=== PATIENT | female | born 1955 | race Two or more races ===

== ENCOUNTER 2018-07-27 06:06 | Day surgery (SDC) | payer OTHER ==
[2018-07-26 11:34] VITALS: BMI 28.1
--- NOTE | 2018-07-26 15:25 | HP ---
- Patient Scheduled date of Surgery: 07/27/18 Scheduled Surgical Procedure: Phacoemulsification and cataract extraction with PCIOL Affected Eye: Right Chief Complaint (Indication for surgery): Decreased vision affecting ADLs - Ocular History Other Eye History: Other (tyrese , pvd os) Eye Medications: vigamox, AT Previous Eye Surgery: none - Medical History Illnesses: Hypercholesterolemia, Diabetes, Thyroid Disease Current Medications: Ambulatory Orders Atorvastatin Calcium [Lipitor] 20 mg PO HS 07/26/18 Calcium Carbonate [Calcium] 600 mg PO DAILY 07/26/18 Ergocalciferol (Vitamin D2) [Vitamin D2] 50,000 unit PO WEEKLY 07/26/18 Glipizide 5 mg PO DAILY 07/26/18 Levothyroxine [Synthroid -] 50 mcg PO DAILY 07/26/18 Multivitamin [Multiple Vitamins] 1 each PO DAILY 07/26/18 Sitagliptin Phos/Metformin HCl [Janumet 50-500 mg Tablet] 1 each PO BID Vitamin B Complex 1 each PO DAILY 07/26/18 Allergies/Adverse Reactions: Allergies Allergy/AdvReac Type Severity Reaction Status Date / Time No Known Allergies Allergy Verified 07/26/18 11:33 Ocular Examination - Best Corrected Visual Acuity Distance: Right eye: 20/40 Distance: Left eye: 20/40 - External/Slit Lamp Examination Abnormalities: decreased TBUT , pingueculum - Intraocular Pressure Intraocular Pressure - Right eye: 14 Intraocular Pressure-Left eye: 14 - Lens Lens: 2+ NS 1+ cortical, 1+ psc - Vitreous/Retina Vitreous/Retina: C:D 0.1, m/v/p wnl - Special Examination M - Right eye: -0.75-1.25 x170 M - Left eye: -0.50-0.75 x005 K - Right eye: 43/44.25 x85 K - Left eye: 43.50/45 x080 AL - Right eye: 23.64 AL - Left eye: 23.64 IOL bag: +20.5 AUOOTO IOL sulcus: +19.5 [id number] IOL AC: +17.0 [id number] - Impression Impression: Cataract Right Eye - Plan Plan: Phacoemulsification and cataract extraction - IOL Right eye Post-hospital care will be provided in office on: 07/28/18
[~2018-07-27 06:06] MED LIST: TOBRAMYCIN/DEXAMETHASONE OPHTH. OINTMENT 1 TUBE TP ONE
[2018-07-27] MEDS ORDERED: CIPROFLOXACIN HCL 0.3% OPHTH 2.5ML BOTTLE ONE (06:28)
[2018-07-27] MEDS ORDERED: PHENYLEPHRINE 2.5% OPHTH SOLN 15 ML BOTTLE ONE (06:28)
[2018-07-27] MEDS ORDERED: TROPICAMIDE 1% OPHTH SOLN 15 ML BOTTLE ONE (06:29)
[2018-07-27] MEDS ORDERED: DICLOFENAC SODIUM 0.1% OPHTHALMIC 2.5ML BOTTLE ONE (06:29)
[2018-07-27] MEDS: CIPROFLOXACIN HCL 0.3% OPHTH 2.5ML BOTTLE OP SCH ×3 (06:45→07:10)
[2018-07-27] MEDS: TROPICAMIDE 1% OPHTH SOLN 15 ML BOTTLE OP SCH ×3 (06:45→07:11)
[2018-07-27] MEDS ORDERED: KETOROLAC TROMETHAMINE 0.5% EYE DROP 1 DROP DROPS ONE (06:55)
[2018-07-27] MEDS: PHENYLEPHRINE 2.5% OPHTH SOLN 15 ML BOTTLE OP SCH ×2 (07:00→07:11)
[2018-07-27] MEDS ORDERED: ACETAMINOPHEN 325 MG TABLET (FP) PO PRN (07:00)
[2018-07-27] MEDS: KETOROLAC TROMETHAMINE 0.5% EYE DROP 1 DROP DROPS OP SCH ×2 (07:00→07:11)
[2018-07-27] MEDS ORDERED: CHONDROITIN SU A/HYALUR SOD 1 KIT ONE (07:06)
[2018-07-27] MEDS ORDERED: LIDOCAINE HCL/PF 1% SDV 5ML VIAL ONE (07:11)
[2018-07-27] MEDS ORDERED: EPINEPHrine/PF 1 MG/1 ML (1:1,000) AMPULE ONE (07:11)
[2018-07-27] MEDS ORDERED: TOBRAMYCIN/DEXAMETHASONE OPHTH. OINTMENT 1 TUBE ONE (07:11)
[2018-07-27] MEDS ORDERED: TETRACAINE 0.5% OPHTH SOLN 2 ML BOTTLE ONE (07:12)
[2018-07-27] MEDS ORDERED: POVIDONE-IODINE 5% OPHTHALMIC PREP 30 ML SOLUTION ONE (07:12)
[2018-07-27] MEDS ORDERED: ACETYLCHOLINE 1:100 INTRA-OCUL 20 MG/2 ML KIT ONE (07:12)
--- NOTE | 2018-07-27 07:23 | HP ---
History & Physical Update - History History: No Change - Physical Physical: No Change - Assessment Assessment: No Change - Plan Plan: No Change (H an P by Dr. Phoenix dated 07/13/18 reivewed, no changes)
[2018-07-27] MEDS ORDERED: BUPIVACAINE HCL/PF 0.75% 10 ML VIAL ONE (07:32)
[2018-07-27] MEDS ORDERED: LIDOCAINE HCL/PF 2% SDV 5ML VIAL ONE (07:33)
[2018-07-27] MEDS ORDERED: PROPOFOL 20 ML ONE (07:51)
[2018-07-27] MEDS ORDERED: TETRACAINE 0.5% OPHTH SOLN 2 ML BOTTLE OD ONE (07:53)
[2018-07-27] MEDS ORDERED: BUPIVACAINE HCL/PF 0.75% 10 ML VIAL NR ONE (07:55)
[2018-07-27] MEDS ORDERED: LIDOCAINE HCL/PF 2% SDV 5ML VIAL INF ONE (07:55)
[2018-07-27] MEDS ORDERED: POVIDONE-IODINE 5% OPHTHALMIC PREP 30 ML SOLUTION OD ONE (08:00)
[2018-07-27] MEDS ORDERED: LIDOCAINE HCL 1% PRESERVATIVE FREE - 30ML VIAL IO ONE (08:06)
[2018-07-27] MEDS ORDERED: BSS (NA/CA/MG/K) BALANCED SALT SOLUTION OPHTH SOLN 15 ML BOTTLE OD ONE (08:06)
[2018-07-27] MEDS ORDERED: CHONDROITIN SU A/HYALUR SOD 1 KIT IO ONE (08:06)
[2018-07-27] MEDS ORDERED: EPINEPHrine/PF 1 MG/1 ML (1:1,000) AMPULE SQ ONE (08:11)
[2018-07-27] MEDS ORDERED: TOBRAMYCIN/DEXAMETHASONE OPHTH. OINTMENT 1 TUBE TP ONE (08:30)
[2018-07-27 08:51] VITALS: TEMP 97.9
--- NOTE | 2018-07-27 09:26 | OP ---
Ophthalmology Operative Note Pre-Operative Diagnosis: Cataract Affected Eye: Right Operation: Phacoemulsification and cataract extraction with PCIOL Findings: NS cataract right eye Post-Operative Diagnosis: Same as Pre-op Loan Counselor: None Anesthesiologist: Rell Guerin Anesthesia: Local, Peribulbar Specimens Removed: none Estimated blood loss: < 1 cc Drains & Tubes with Location: none Operative Report Dictated: Yes
[2018-07-27] MEDS ORDERED: ONDANSETRON 4 MG/2 ML VIAL IVPUSH PRN (10:24)
[2018-07-27] MEDS ORDERED: LACTATED RINGERS SOLUTION 1,000 ML IV SCH (10:30)
[2018-07-27 12:54] VITALS: BP 126/71; PULSE 70
--- NOTE | 2018-07-27 16:02 | OP ---
DATE OF OPERATION: DATE OF DICTATION: 07/27/2018 PREOPERATIVE DIAGNOSIS: Nuclear sclerotic cataract right eye. POSTOPERATIVE DIAGNOSIS: Nuclear sclerotic cataract right eye. PROCEDURE: Phacoemulsification and cataract extraction with insertion of posterior chamber intraocular lens right eye. SURGEON: Liliane Stevenson M.D. DYNAMITE SHOOTER: None ANESTHESIA: Peribulbar block ANESTHESIOLOGIST: Rell Guerin CRNA OPERATIVE PROCEDURE: Following satisfactory venous sedation, the patient received local anesthesia using a 50:50 mixture of lidocaine 2% and Marcaine 0.75%. A lid block was delivered to the right eye using 5 mL of the mixture and a peribulbar injection using 3 mL of the mixture. The patient was then prepped and draped in the usual sterile fashion so as to only expose the right eye. The patient received Tetracaine eye drops and was gently sedated and prepped and draped in the usual sterile fashion so as to expose only the right eye. Ophthalmic Betadine was instilled into the inferior fornix and lashes were taped out of the surgical field. An eyelid speculum was placed into the right eye. Paracentesis was made in right temporal clear cornea at the limbus. Then 0.5 mL of nonpreserved lidocaine 1% was injected into the anterior chamber and then 1 mL of dilute epinephrine 1:10,000 was injected into the anterior chamber to improve pupillary dilation. Viscoelastic material was instilled into the anterior chamber via the paracentesis. A 2.4-mm keratome blade was then used to create the main incision in temporal clear cornea at the limbus. A continuous curvilinear capsulorrhexis was performed using a cystotome and Utrata forceps. Hydrodissection of the lens cortex was performed using BSS on a cannula until the nucleus was noted to be freely rotating. The phacoemulsification tip was then inserted via the main wound and used to scope 2 perpendicular grooves into the lens nucleus. The nucleus was cracked into 4 quadrants. Each quadrant was lifted out of the capsule into the iris plane and individually phacoemulsified. The remaining cortical material was then aspirated using the irrigation/aspiration port. The capsular bag was inflated using ProVisc and a preloaded AcrySof lens model [id number] power 20.5 diopters was injected into the capsular bag. It was centered using a Sinskey hook. The residual viscoelastic material was removed from the anterior chamber using irrigation and aspiration. The wound edges were hydrated using BSS. After the wound was tested for leakage, it was found to be slightly leaky. Therefore, one 10-0 nylon suture was placed across the wound in an X configuration and buried. Tobradex ointment was placed in the eye, and the speculum was removed from the eye, and the eyelid was closed. A sterile dressing and shield were placed over the eye. The patient was transferred to the recovery room in stable condition, told to follow up in 1 day. LILIANE PAREDES M.D. [id number]
== END 2018-07-27 09:30 | disposition home or self-care (01) ==
LOC: JASU-SURG 06:06
PROVIDERS: ATTEND Ophthalmology
PROC: 08RJ3JZ Replacement of Right Lens with Synthetic Substitute, Percutaneous Approach (ICD-10-PCS; principal; 2018-07-27 07:30)
DX: H25.11 Age-related nuclear cataract, right eye (principal); I10 Essential (primary) hypertension; E11.9 Type 2 diabetes mellitus without complications
CPT/HCPCS: 82962

== ENCOUNTER 2018-10-19 05:55 | Day surgery (SDC) | payer OTHER | END 2018-10-19 09:07 | disposition home or self-care (01) | LOC: JASU-SURG 05:55 ==

== ENCOUNTER 2019-04-04 14:27 | Observation (INO) | payer OTHER ==
--- NOTE | 2019-04-04 14:38 | PDOC ---
Rapid Medical Evaluation Medical Evaluation: Allergies Allergy/AdvReac Type Severity Reaction Status Date / Time No Known Allergies Allergy Verified 10/18/18 12:26 04/04/19 14:32 have performed a brief in-person evaluation of this patient. The patient presents with a chief complaint of: CP w/ SOB x 1 week. No known h/ o CAD. ? neg stress test 3 years ago at [facility] per son. No obvious RF for DVT/ PE. H/o DM, HLD, Hypothyroid. Sent to ER by Dr Phoenix (pmd) Pertinent physical exam findings:Stable and well alberto I have ordered the following:ek/cxr/labs The patient will proceed to the ED for further evaluation. 04/04/19 14:38 Discharge Disposition - Diagnosis Chest pain Qualifiers: Chest pain type: unspecified Qualified Code(s): R07.9 - Chest pain, unspecified - Referrals - Patient Instructions - Post Discharge Activity
--- NOTE | 2019-04-04 14:39 | PDOC ---
History of Present Illness - General Chief Complaint: Chest Pain Stated Complaint: SENT BY PCP/CHEST PAIN Time Seen by Provider: 04/04/19 14:35 History Source: Patient - History of Present Illness Initial Comments: 04/04/19 15:00 Ms. Hewitt is a 64 y/o woman w/hx DM, HLD, hypothyroidism p/w one week of chest pain and sob, sent by PCP for evaluation. She reports that the pain began a week ago accompanied by sob, no prior similar episodes. 8/10 substernal pain described as tightness, worse with exertion, non-radiating, worse with palpation. No orthopnea, lower extremity swelling, or history of DVTs. PCP: Dr. Phoenix Past History - Past Medical History Allergies/Adverse Reactions: Allergies Allergy/AdvReac Type Severity Reaction Status Date / Time No Known Allergies Allergy Verified 04/04/19 14:38 Home Medications: Ambulatory Orders Atorvastatin Calcium [Lipitor] 20 mg PO HS 07/26/18 Calcium Carbonate [Calcium] 600 mg PO DAILY 07/26/18 Ergocalciferol (Vitamin D2) [Vitamin D2] 50,000 unit PO WEEKLY 07/26/18 Glipizide 5 mg PO DAILY 07/26/18 Levothyroxine [Synthroid -] 50 mcg PO DAILY 07/26/18 Multivitamin [Multiple Vitamins] 1 each PO DAILY 07/26/18 Sitagliptin Phos/Metformin HCl [Janumet 50-500 mg Tablet] 1 each PO BID Vitamin B Complex 1 each PO DAILY 07/26/18 Anemia: No Asthma: No Cancer: No Cardiac Disorders: No CVA: No COPD: No CHF: No Dementia: No Diabetes: Yes GI Disorders: No Disorders: No HTN: Yes Hypercholesterolemia: Yes Liver Disease: No Seizures: No Thyroid Disease: Yes (HYPO) Other medical history: SPINAL STENOSIS - Surgical History Cholecystectomy: Yes - Psycho Social/Smoking Cessation Hx Smoking History: Never smoked Hx Alcohol Use: No Drug/Substance Use Hx: No Substance Use Type: None Hx Substance Use Treatment: No Review of Systems - Review of Systems Able to Perform ROS?: Yes Comments:: 04/04/19 18:04 ROS: GENERAL/CONSTITUTIONAL: No fever or chills. No weakness. HEAD, EYES, EARS, NOSE AND THROAT: No change in vision. No ear pain or discharge. No sore throat. CARDIOVASCULAR: Chest pain, shortness of breath RESPIRATORY: No cough, wheezing, or hemoptysis. GASTROINTESTINAL: No nausea, vomiting, diarrhea or constipation. GENITOURINARY: No dysuria, frequency, or change in urination. MUSCULOSKELETAL: No joint or muscle swelling or pain. No neck or back pain. SKIN: No rash NEUROLOGIC: No headache, vertigo, loss of consciousness, or change in strength/ sensation. ENDOCRINE: No increased thirst. No abnormal weight change HEMATOLOGIC/LYMPHATIC: No anemia, easy bleeding, or history of blood clots. ALLERGIC/IMMUNOLOGIC: No hives or skin allergy. *Physical Exam - Vital Signs Last Vital Signs Temp Pulse Resp BP Pulse Ox 98.4 F 86 18 134/75 98 04/04/19 14:34 04/04/19 14:34 04/04/19 14:34 04/04/19 14:34 04/04/19 14:34 - Physical Exam 04/04/19 18:08 PE: GENERAL: Awake, alert, and fully oriented, in no acute distress HEAD: No signs of trauma, normocephalic, atraumatic EYES: PERRLA, EOMI, sclera anicteric, conjunctiva clear ENT: Auricles normal inspection, hearing grossly normal, nares patent, oropharynx clear without exudates. Moist mucosa NECK: Normal ROM, supple, no lymphadenopathy, JVD, or masses LUNGS: No distress, speaks full sentences, clear to auscultation bilaterally HEART: Regular rate and rhythm, normal S1 and S2, no murmurs, rubs or gallops, peripheral pulses normal and equal bilaterally. ABDOMEN: Soft, nontender, normoactive bowel sounds. No guarding, no rebound. No masses EXTREMITIES : Normal inspection, Normal range of motion, no edema. No clubbing or cyanosis NEUROLOGICAL: Cranial nerves II through XII grossly intact. Normal speech, normal gait, no focal sensorimotor deficits SKIN: Warm, Dry, normal turgor, no rashes or lesions noted Heart Score/ECG Review - History History: Moderately suspicious - Electrocardiogram EKG: Normal - Age Age: >/= 65 - Risk Factors Risk Factors Heart Score: Yes Hx Hypercholesterolemia, Yes Hx Diabetes, Yes Hx Obesity Based on the list above the patient has:: >/=3 risk factors or Hx atherosclerotic disease - Troponin Troponin: </= normal limit - Score Heart Score - Total: 5 ED Treatment Course - LABORATORY CBC & Chemistry Diagram: 04/04/19 15:00 04/04/19 15:00 Medical Decision Making - Medical Decision Making 04/04/19 15:49 64F w/hx DM, hypothyroidism p/w 1 week of squeezing chest pain, sob, worse with exertion. Ddx includes ACS, unstable angina, given age/comorbidities. Anemia, electrolyte derangements also possible. Esophageal rupture and PE possible but unlikely (Wells - 0). Plan: CBC CMP Cardiac profile EKG CXR ASA 324 mg Dispo: Admit --- CBC - wnl CMP - wnl Cardiac profile - negative Case discussed with admitting team. Patient admitted to cardiac obs. Discharge - Discharge Information Problems reviewed: Yes Clinical Impression/Diagnosis: Chest pain Qualifiers: Chest pain type: unspecified Qualified Code(s): R07.9 - Chest pain, unspecified Condition: Stable - Admission Yes - Follow up/Referral - Patient Discharge Instructions - Post Discharge Activity
[2019-04-04] MEDS ORDERED: ASPIRIN 325 MG TABLET PO ONE (15:24)
[2019-04-04] MEDS ORDERED: ASPIRIN 325 MG ENTERIC COATED TABLET (FP) ONE (15:37)
[2019-04-04 15:41] LABS: BASO % 1.5 % (0-2.0); EOS % 0.7 % (0-4.5); HEMATOCRIT 45.7 % (32.4-45.2); HEMOGLOBIN 16.2 GM/dL (10.7-15.3); LYMPH % 22.3 % (8-40); MCH 29.4 pg (25.7-33.7); MCHC 35.4 g/dl (32.0-36.0); MEAN PLT VOLUME 8.1 fl (7.5-11.1); MONO % 8.1 % (3.8-10.2); NEUT % 67.4 % (42.8-82.8); PLATELET COUNT 285 K/MM3 (134-434); RDW 12.9 % (11.6-15.6); WHITE BLOOD COUNT 8.8 K/mm3 (4.0-10.0)
[2019-04-04 15:55] LABS: ALBUMIN 4.9 g/dl (3.4-5.0); BILIRUBIN,TOTAL 0.7 mg/dL (0.2-1); BLOOD UREA NITROGEN 30.2 mg/dL (7-18); CALCIUM 9.8 mg/dL (8.5-10.1); CREATININE 0.9 mg/dL (0.55-1.3); POTASSIUM 3.8 mmol/L (3.5-5.1); TOT PROT 8.1 g/dl (6.4-8.2)
--- NOTE | 2019-04-04 16:33 | EKG ---
Test Reason : Blood Pressure : / mmHG Vent. Rate : 080 BPM Atrial Rate : 080 BPM P-R Int : 154 ms QRS Dur : 100 ms QT Int : 394 ms P-R-T Axes : 050 002 048 degrees QTc Int : 454 ms NORMAL SINUS RHYTHM NORMAL ECG Confirmed by MD HAYNES GREGORY ([id number]) on 04/04/2019 4:32:39 PM Referred By: Confirmed By:HUSAM HAYNES MD
--- NOTE | 2019-04-04 17:13 | PDOC ---
Documentation entered by Reji Santoyo SCRIBE, acting as scribe for Jinny So MD. Jinny oS MD: This documentation has been prepared by the Yarelis gomez Xhesika, SCRIBE, under my direction and personally reviewed by me in its entirety. I confirm that the documentation accurately reflects all work, treatment, procedures, and medical decision making performed by me. Attending Attestation - Resident Resident Name: TommiePascual - ED Attending Attestation I have performed the following: I have examined & evaluated the patient, The case was reviewed & discussed with the resident, I agree w/resident's findings & plan, Exceptions are as noted - HPI HPI: 04/04/19 15:29 The patient is a 64 year old female with a significant PMH of DM, HLD, hypothyroidism who presents to the emergency department referred by Dr. Phoenix for 1 week of SOB and chest pain. Pt states she saw Dr. Phoenix today for the same symptoms and had an EKG done, which was normal. Pt describes her chest pain as substernal, pressure sensation, 8/10 in severity without any alleviating or aggravating factors. The patient denies headaches and dizziness. Denies fever, chills, cough, nausea , vomiting, diarrhea and constipation. Denies dysuria, frequency, urgency and hematuria. Allergies: NKDA - Physicial Exam PE: 04/04/19 17:11 Awake alert no acute distress lungs are clear bilaterally heart is regular 30 murmurs rubs or gallops abdomen is soft nontender skin is warm and dry extremities are warm well perfused there is no noted peripheral edema 2+ DP PT pulses symmetric bilaterally. Patient is awake alert and oriented x3 - Medical Decision Making 04/04/19 17:12 64-year-old female history of diabetes hypertension here today complaining of pressure-like chest pain suspicious for ACS differential includes other causes such as pneumonia infection CHF plan CBC CMP troponin EKG. Due to the patient' s high risk factors will require admission to telemetry initial troponin EKG unremarkable chest x-ray is negative for any infection given aspirin here in the ED Heart Score/ECG Review #1 General ECG Interpretation: Sinus Rhythm, Normal Rate, Normal Intervals, No acute ischemic changes
[2019-04-04] MEDS ORDERED: ATORVASTATIN CA 40 MG TABLET (FP) PO ONE (17:44)
[2019-04-04] MEDS ORDERED: NITROGLYCERIN 2% OINTMENT - 1GM PACKET TD ONE ×2 (17:44→18:52)
--- NOTE | 2019-04-04 17:46 | HP ---
Admitting History and Physical - Primary Care Physician PCP: Lexis Phoenix - Admission Chief Complaint: chest pain History of Present Illness: 04/04/19 15:29 The patient is a 64 year old female with a significant PMH of DM, HLD, hypothyroidism who presents to the emergency department referred by Dr. Phoenix for 1 week of SOB and chest pain. Pt states she saw Dr. Phoenix today for the same symptoms and had an EKG done, which was normal. Pt describes her chest pain as substernal, pressure sensation, 8/10 in severity without any alleviating or aggravating factors. has been going on for the past 2 weeks, and no associated indigetsion, no relation to breathing, The patient denies headaches and dizziness. Denies fever, chills, cough, nausea, vomiting, diarrhea and constipation. Denies dysuria, frequency, urgency and hematuria. History Source: Patient, Family Member Limitations to Obtaining History: No Limitations - Past Medical History Cardiovascular: Yes: Hyperlipdemia Endocrine: Yes: Diabetes Mellitus, Hypothyroidism - Smoking History Smoking history: Never smoked - Alcohol/Substance Use Hx Alcohol Use: No - Social History Usual Living Arrangement: Yes: With Child ADL: Independent History of Recent Travel: No Home Medications - Allergies Allergies/Adverse Reactions: Allergies Allergy/AdvReac Type Severity Reaction Status Date / Time No Known Allergies Allergy Verified 04/04/19 14:38 - Home Medications Home Medications: Ambulatory Orders Atorvastatin Calcium [Lipitor] 20 mg PO HS 07/26/18 Calcium Carbonate [Calcium] 600 mg PO DAILY 07/26/18 Glipizide 5 mg PO DAILY 07/26/18 Levothyroxine [Synthroid -] 50 mcg PO DAILY 07/26/18 Vitamin B Complex 1 each PO DAILY 07/26/18 Dapagliflozin Propanediol [Farxiga] 10 mg PO DAILY 04/04/19 Sitagliptin Phos/Metformin HCl [Janumet 50-1,000 mg Tablet] 1 each PO BID 04/04/19 Family Medical History Family History: Denies Review of Systems - Review of Systems Constitutional: reports: No Symptoms Eyes: reports: No Symptoms Neck: reports: No Symptoms Cardiovascular: reports: Chest Pain, Other Respiratory: reports: No Symptoms Gastrointestinal: reports: No Symptoms Genitourinary: reports: No Symptoms Breasts: reports: No Symptoms Reported Musculoskeletal: reports: No Symptoms Integumentary: reports: No Symptoms Endocrine: reports: No Symptoms Hematology/Lymphatic: reports: No Symptoms Psychiatric: reports: No Symptoms Physical Examination Vital Signs: Vital Signs Temperature 98.4 F 04/04/19 14:34 Pulse Rate 86 04/04/19 14:34 Respiratory Rate 18 04/04/19 14:34 Blood Pressure 134/75 04/04/19 14:34 O2 Sat by Pulse Oximetry (%) 98 04/04/19 14:34 Constitutional: Yes: Well Nourished Eyes: Yes: Conjunctiva Clear, EOM Intact HENT: Yes: Atraumatic, Normocephalic Neck: Yes: Supple, Trachea Midline Cardiovascular: Yes: Regular Rate and Rhythm, Other (tender at the costochondral junction,) Respiratory: Yes: Regular, CTA Bilaterally Gastrointestinal: Yes: Normal Bowel Sounds, Soft Extremities: Yes: WNL Edema: No Peripheral Pulses WNL: Yes Integumentary: Yes: WNL Neurological: Yes: WNL ...Motor Strength: WNL Psychiatric: Yes: WNL Labs: CBC, BMP 04/04/19 15:00 04/04/19 15:00 Imaging - Results EKG: Report Reviewed, Image Reviewed Assessment/Plan 04/04/19 15:29 The patient is a 64 year old female with a significant PMH of DM, HLD, hypothyroidism who presents to the emergency department referred by Dr. Phoenix for sob, Chest pain, r/o cad, likely musculoskeletal, recieved the asp and is still in pain, start nitropaste, and ekg no acute st t changes, and check serial of crdiac enzyymes, and will get cardiology, Dm riss, and home meds, hyperlipidemia, resume meds, dvt prophylaxis, Visit type - Emergency Visit Emergency Visit: No - New Patient This patient is new to me today: Yes Date on this admission: 04/19/19 - Critical Care Critical Care patient: No
[2019-04-04] MEDS ORDERED: ATORVASTATIN CA 40 MG TABLET (FP) ONE (18:52)
[2019-04-04] MEDS ORDERED: ENOXAPARIN NA (PORCINE) 40 MG/0.4 ML DISP.SYRIN SQ ONE (18:52)
[2019-04-04] MEDS: ENOXAPARIN NA (PORCINE) 40 MG/0.4 ML DISP.SYRIN SQ SCH (19:27)
[2019-04-04 20:16] VITALS: BMI 29.5
[2019-04-04] MEDS ORDERED: PATIENT'S OWN MEDICATION (NON-FORMULARY) (Sitagliptin Phos/Metformin Hcl [Janumet 50-1,000 PO SCH (22:00)
[2019-04-04] MEDS ORDERED: ATORVASTATIN CA 20 MG TABLET (FP) PO SCH (22:00)
[2019-04-04] MEDS ORDERED: INSULIN SLIDING SCALE (NOVOLOG) 1 VIAL SQ SCH (22:00)
[2019-04-04] MEDS: metFORMIN HCL 500 MG TABLET (FP) PO SCH (22:59)
[2019-04-04] MEDS: sitaGLIPtin PHOSPHATE 50 MG TABLET PO SCH (22:59)
[2019-04-04] MEDS: INSULIN SLIDING SCALE (NOVOLOG) 1 VIAL SQ SCH (23:00)
[2019-04-05] MEDS: metFORMIN HCL 500 MG TABLET (FP) PO SCH (06:06)
[2019-04-05] MEDS: sitaGLIPtin PHOSPHATE 50 MG TABLET PO SCH (06:06)
[2019-04-05] MEDS: INSULIN SLIDING SCALE (NOVOLOG) 1 VIAL SQ SCH ×3 (06:07→16:14)
[2019-04-05] MEDS ORDERED: LEVOTHYROXINE NA 50 MCG TABLET (FP) PO SCH (07:00)
[2019-04-05 07:19] LABS: HEMATOCRIT 41.9 % (32.4-45.2); HEMOGLOBIN 14.6 GM/dL (10.7-15.3); MCH 29.1 pg (25.7-33.7); MEAN CELL VOLUME 83.3 fl (80-96); MEAN PLT VOLUME 7.8 fl (7.5-11.1); PLATELET COUNT 246 K/MM3 (134-434); RBC 5.02 M/mm3 (3.60-5.2); RDW 12.8 % (11.6-15.6); WHITE BLOOD COUNT 5.9 K/mm3 (4.0-10.0)
--- NOTE | 2019-04-05 08:17 | PN ---
Progress Note (short form) - Note Progress Note: 64 yo lady with h/o htn, hyperlipidemia, NIDDM, hypothyroidism comes in for 1 week of exertional dyspnea, describes not getting enough air and having pleuritic chest pain cardiac enzymes neg x2 CBC, BMP 04/05/19 05:43 Vital Signs Period Temp Pulse Resp BP Sys/Galvez Pulse Ox Last 24 Hr 97.7 F-98.4 F 70-88 18-20 99-134/56-75 94-98 s1s2 lungs cta abd soft non tender no edema offers no complaints at present chest pain echo stress test as per cardiology cta r/o pe
[2019-04-05 08:45] LABS: ALBUMIN 4.2 g/dl (3.4-5.0); BILIRUBIN,TOTAL 0.9 mg/dL (0.2-1); BLOOD UREA NITROGEN 23.2 mg/dL (7-18); CALCIUM 9.2 mg/dL (8.5-10.1); CREATININE 0.8 mg/dL (0.55-1.3); POTASSIUM 3.4 mmol/L (3.5-5.1)
[2019-04-05] MEDS ORDERED: PATIENT'S OWN MEDICATION (NON-FORMULARY) (Calcium Carbonate [Calcium] 600 MG) PO SCH (10:00)
[2019-04-05] MEDS ORDERED: ASPIRIN 81 MG CHEWABLE TABLETS PO SCH (10:00)
[2019-04-05] MEDS ORDERED: CALCIUM (OYSTER SHELL) 500 MG TABLET (FP) PO SCH (10:00)
[2019-04-05] MEDS ORDERED: PATIENT'S OWN MEDICATION (NON-FORMULARY) (Dapagliflozin Propanediol [Farxiga] 10 MG) PO SCH (10:00)
--- NOTE | 2019-04-05 11:41 | CON.CARD ---
Consult Consult Specialty:: Cardiology - History of Present Illness History of Present Illness: Ms. Hewitt is a 64 y/o woman w/hx DM, HLD, hypothyroidism p/w one week of chest pain and sob, sent by PCP for evaluation. She reports that the pain began a week ago accompanied by sob, no prior similar episodes. 09/16 substernal pain described as tightness, worse with exertion, non-radiating, worse with palpation. No orthopnea, lower extremity swelling, or history of DVTs. - History Source History Provided By: Patient, Medical Record - Past Medical History Cardio/Vascular: Yes: Hyperlipdemia ...: No Endocrine: Yes: Diabetes Mellitus, Hypothyroidism - Alcohol/Substance Use Hx Alcohol Use: No - Smoking History Smoking history: Never smoked Have you smoked in the past 12 months: No - Social History ADL: Independent History of Recent Travel: No Home Medications - Allergies Allergies/Adverse Reactions: Allergies Allergy/AdvReac Type Severity Reaction Status Date / Time No Known Allergies Allergy Verified 04/04/19 14:38 - Home Medications Home Medications: Ambulatory Orders Atorvastatin Calcium [Lipitor] 20 mg PO HS 07/26/18 Calcium Carbonate [Calcium] 600 mg PO DAILY 07/26/18 Glipizide 5 mg PO DAILY 07/26/18 Levothyroxine [Synthroid -] 50 mcg PO DAILY 07/26/18 Vitamin B Complex 1 each PO DAILY 07/26/18 Dapagliflozin Propanediol [Farxiga] 10 mg PO DAILY 04/04/19 Sitagliptin Phos/Metformin HCl [Janumet 50-1,000 mg Tablet] 1 each PO BID Review of Systems - Review of Systems Constitutional: reports: No Symptoms Eyes: reports: No Symptoms HENT: reports: No Symptoms Neck: reports: No Symptoms Cardiovascular: reports: Chest Pain Gastrointestinal: reports: No Symptoms Genitourinary: reports: No Symptoms Breasts: reports: No Symptoms Reported Musculoskeletal: reports: No Symptoms Integumentary: reports: No Symptoms Neurological: reports: No Symptoms Endocrine: reports: No Symptoms Hematology/Lymphatic: reports: No Symptoms Psychiatric: reports: No Symptoms Vital Signs: Vital Signs Temperature 98.4 F 04/05/19 08:30 Pulse Rate 73 04/05/19 08:30 Respiratory Rate 20 04/05/19 09:00 Blood Pressure 108/65 04/05/19 08:30 O2 Sat by Pulse Oximetry (%) 94 L 04/05/19 09:00 Constitutional: Yes: Well Nourished, No Distress, Calm Eyes: Yes: WNL, Conjunctiva Clear, EOM Intact HENT: Yes: WNL, Atraumatic, Normocephalic Neck: Yes: WNL, Supple, Trachea Midline Respiratory: Yes: WNL, Regular, CTA Bilaterally Gastrointestinal: Yes: WNL, Normal Bowel Sounds Renal/: Yes: WNL Cardiovascular: Yes: WNL, Regular Rate and Rhythm Musculoskeletal: Yes: WNL Extremities: Yes: WNL Integumentary: Yes: WNL Neurological: Yes: WNL, Alert, Oriented ...Motor Strength: WNL Psychiatric: Yes: WNL, Alert, Oriented - Other Data Labs, Other Data: CBC, BMP 04/05/19 05:43 04/05/19 05:43 Troponin, BNP 04/04/19 04/04/19 15:00 18:40 Troponin I < 0.02 < 0.02 Troponin, BNP 04/04/19 04/04/19 15:00 18:40 Troponin I < 0.02 < 0.02 Imaging - Results Chest X-ray: Image Reviewed (no i/e) EKG: Image Reviewed (sr wnl) Problem List - Problems (1) Chest pain Code(s): R07.9 - CHEST PAIN, UNSPECIFIED Qualifiers: Chest pain type: unspecified Qualified Code(s): R07.9 - Chest pain, unspecified Assessment/Plan 64 y/o woman w/hx DM, HLD, hypothyroidism p/w one week of chest pain and sob, sent by PCP for evaluation. She reports that the pain began a week ago accompanied by sob, no prior similar episodes. 8/10 substernal pain described as tightness, worse with exertion, non-radiating, worse with palpation. mi r/o neg No PE on CTA Plan; ECHO mibi st cont asa dvt bplx telemetry keep ldl below 70 mg /dl
[2019-04-05] MEDS ORDERED: REGADENOSON 0.4 MG/5 ML PRE-FILLED SYRINGE IVPUSH ONE ×2 (11:43→12:00)
--- NOTE | 2019-04-05 12:34 | ECHO ---
Name: ERICK VAZQUEZ Exam:Adult Echocardiogram Study Date: 04/05/2019 09:39 AM Age: 64 yrs Reason For Study: lvsf Height: 67 in Weight: 188 lb BSA: 2.0 m2 MMode/2D Measurements & Calculations LVLd ap4: 7.0 cm SV(MOD-sp4): 38.2 ml EDV(MOD-sp4): 63.7 ml LVLs ap4: 5.8 cm ESV(MOD-sp4): 25.5 ml RV S Manfred: 12.2 cm/sec Doppler Measurements & Calculations MV E max manfred: 48.5 cm/sec Ao V2 max: 110.6 cm/sec MV A max manfred: 67.4 cm/sec Ao max P.9 mmHg MV E/A: 0.72 MV dec time: 0.19 sec LV V1 max P.8 mmHg Med Peak E' Manfred: 4.0 cm/sec LV V1 max: 98.0 cm/sec Med E/e': 12.0 Lat Peak E' Manfred: 10.0 cm/sec Lat E/e': 4.8 Procedure A complete two-dimensional transthoracic echocardiogram was performed (2D, M-mode, Doppler and color flow Doppler). The study was technically difficult with many images being suboptimal in quality. Left Ventricle The left ventricular size, thickness and function are normal. The left ventricular ejection fraction is normal. Ejection Fraction = 60-65%. No regional wall motion abnormalities noted. Right Ventricle The right ventricle is grossly normal size. The right ventricular systolic function is grossly normal . Atria The left atrial size is normal. Right atrium not well visualized. Mitral Valve There is no mitral regurgitation noted. Tricuspid Valve No tricuspid regurgitation. There was insufficient TR detected to calculate RV systolic pressure. Aortic Valve No hemodynamically significant valvular aortic stenosis. No aortic regurgitation is present. Pulmonic Valve The pulmonic valve is not well visualized. Great Vessels The aortic root is not well visualized. Pericardium/Pleura There is no pericardial effusion. Interpretation Summary The study was technically difficult with many images being suboptimal in quality. The left ventricular size, thickness and function are normal The right ventricle is grossly normal size. The right ventricular systolic function is grossly normal. No significant valvular abnormalities seen. MD James Urena 04/05/2019 12:34 PM
[2019-04-05] MEDS: ENOXAPARIN NA (PORCINE) 40 MG/0.4 ML DISP.SYRIN SQ SCH (13:23)
--- NOTE | 2019-04-05 14:05 | PN ---
Progress Note, Physician - Current Medication List Current Medications: Active Medications Aspirin (Asa -) 81 mg PO DAILY [facility] Last Admin: 04/05/19 13:23 Dose: 81 mg Atorvastatin Calcium (Lipitor -) 20 mg PO HS [facility] Last Admin: 04/04/19 23:00 Dose: Not Given Calcium Carbonate (Os-Wilbert 500mg -) 500 mg PO DAILY [facility] Last Admin: 04/05/19 13:24 Dose: 500 mg Enoxaparin Sodium (Lovenox -) 40 mg SQ DAILY [facility] Last Admin: 04/05/19 13:23 Dose: 40 mg Insulin Aspart (Novolog Vial Sliding Scale -) 1 vial SQ [facility]; Protocol Last Admin: 04/05/19 11:49 Dose: Not Given Levothyroxine Sodium (Synthroid -) 50 mcg PO DAILY@0700 [facility] Last Admin: 04/05/19 06:07 Dose: 50 mcg Non-Formulary Medication (Dapagliflozin Propanediol [Farxiga]) 10 mg PO DAILY [facility] Sitagliptin Phosphate (Januvia -) 50 mg PO BID@0700,2200 [facility] Last Admin: 04/05/19 06:06 Dose: Not Given - Objective Vital Signs: Vital Signs Temperature 98.4 F 04/05/19 08:30 Pulse Rate 73 04/05/19 08:30 Respiratory Rate 20 04/05/19 09:00 Blood Pressure 108/65 04/05/19 08:30 O2 Sat by Pulse Oximetry (%) 94 L 04/05/19 09:00 Labs: CBC, BMP 04/05/19 05:43 04/05/19 05:43
[2019-04-05 15:06] VITALS: BP 129/78; PULSE 81; TEMP 97.8
--- NOTE | 2019-04-05 15:11 | DS ---
Physical Examination Vital Signs: Vital Signs Temperature 97.8 F 04/05/19 14:00 Pulse Rate 81 04/05/19 14:00 Respiratory Rate 20 04/05/19 14:00 Blood Pressure 129/78 04/05/19 14:00 O2 Sat by Pulse Oximetry (%) 94 L 04/05/19 09:00 Constitutional: Yes: Well Nourished, Calm Eyes: Yes: EOM Intact HENT: Yes: Normocephalic Neck: Yes: Trachea Midline Cardiovascular: Yes: Regular Rate and Rhythm Respiratory: Yes: CTA Bilaterally Gastrointestinal: Yes: Normal Bowel Sounds, Soft Peripheral Pulses WNL: Yes Integumentary: Yes: WNL Neurological: Yes: WNL Labs: CBC, BMP 04/05/19 05:43 04/05/19 05:43 Discharge Summary Problems reviewed: Yes Reason For Visit: SENT BY PCP/CHEST PAIN Current Active Problems Chest pain (Acute) Hospital Course: admitted for chest pain, dyspnea cta negative for pe, stress test and echo and serial cardiac enzymes were normal. hemodinamically and medically stable to de home with close outpt f/up Condition: Stable - Instructions Diet, Activity, Other Instructions: drink plenty fluid stop metformin for 48 hours-resume on tuesday evening follow up with dr. Phoenix Tuesday(04.09.2019) Referrals: Vahid Phoenix MD [Primary Care Provider] - Disposition: HOME - Home Medications Comprehensive Discharge Medication List: Ambulatory Orders Atorvastatin Calcium [Lipitor] 20 mg PO HS 07/26/18 Calcium Carbonate [Calcium] 600 mg PO DAILY 07/26/18 Glipizide 5 mg PO DAILY 07/26/18 Levothyroxine [Synthroid -] 50 mcg PO DAILY 07/26/18 Vitamin B Complex 1 each PO DAILY 07/26/18 Dapagliflozin Propanediol [Farxiga] 10 mg PO DAILY 04/04/19 Sitagliptin Phos/Metformin HCl [Janumet 50-1,000 mg Tablet] 1 each PO BID
== END 2019-04-05 16:22 | disposition home or self-care (01) ==
LOC: JER 14:27 → JERBED 15:59 → J4W 20:27
PROVIDERS: ADMIT Internal Medicine; ATTEND Internal Medicine
PROC: 3E033GC Introduction of Other Therapeutic Substance into Peripheral Vein, Percutaneous Approach (ICD-10-PCS; principal; 2019-04-04)
DX: R07.89 Other chest pain (principal); I10 Essential (primary) hypertension; E78.5 Hyperlipidemia, unspecified; E11.9 Type 2 diabetes mellitus without complications; E03.9 Hypothyroidism, unspecified; Z79.84 Long term (current) use of oral hypoglycemic drugs
CPT/HCPCS: 36415; 71046-TC-FY; 71275-TC; 78452-TC; 80053; 80061; 82550; 82962; 83036; 83721; 84439; 84443; 84484; 85025; 85027; 93005; 93010; 93017; 93306-TC; 96374; 99285-25; A9502; G0378; J2785; Q9967

== ENCOUNTER 2019-08-19 10:04 | Emergency (ER) | payer OTHER ==
--- NOTE | 2019-08-19 10:07 | PDOC ---
History of Present Illness - General Chief Complaint: Sunburn Stated Complaint: LEFT ARM SUNBURN Time Seen by Provider: 08/19/19 10:07 History Source: Patient, Care Provider - History of Present Illness Initial Comments: 08/19/19 10:50 Pt presents to the Ed complaining of pain from a sunburn one week ago. Patient was sunbathing by a pool last weekend and got a severe sunburn on both arms, with blistering. Now blistering and redness has mostly healed, but there is an area of redness and tenderness on her L upper arm that is persistent. Patient and her son are concerned about infection because this area has become somewhat itchy, particularly at night. Patient and her son deny fever, nausea or vomiting, elevated blood sugars or other signs of infection. Past History - Medical History Allergies/Adverse Reactions: Allergies Allergy/AdvReac Type Severity Reaction Status Date / Time No Known Allergies Allergy Verified 08/19/19 10:05 Home Medications: Ambulatory Orders Atorvastatin Calcium [Lipitor] 20 mg PO HS 07/26/18 Calcium Carbonate [Calcium] 600 mg PO DAILY 07/26/18 Glipizide 5 mg PO DAILY 07/26/18 Levothyroxine [Synthroid -] 50 mcg PO DAILY 07/26/18 Vitamin B Complex 1 each PO DAILY 07/26/18 Dapagliflozin Propanediol [Farxiga] 10 mg PO DAILY 04/04/19 Sitagliptin Phos/Metformin HCl [Janumet 50-1,000 mg Tablet] 1 each PO BID 04/04/19 Cephalexin [Keflex] 500 mg PO BID #20 capsule 08/19/19 Diphenhydramine HCl [Benadryl -] 25 mg PO Q8H PRN #21 capsule 08/19/19 Ibuprofen 600 mg PO TID PRN #20 tablet 08/19/19 Anemia: No Asthma: No Cancer: No Cardiac Disorders: No CVA: No COPD: No CHF: No Dementia: No Diabetes: Yes GI Disorders: No Disorders: No HTN: Yes Hypercholesterolemia: Yes Liver Disease: No Seizures: No Thyroid Disease: Yes (HYPO) - Surgical History Cholecystectomy: Yes - Psycho-Social/Smoking History Smoking History: Never smoked Have you smoked in the past 12 months: No Review of Systems - Review of Systems Able to Perform ROS?: Yes Is the patient limited American proficient: No Constitutional: No: Symptoms Reported, See HPI, Chills, Diaphoresis, Fever, Loss of Appetite, Malaise, Night Sweats, Weakness, Weight Stable, Unintentional Wgt. Loss, Unexplained wgt Loss, Other Integumentary: Yes: Erythema, Other (sunburn). No: Symptoms Reported, See HPI, Bruising, Change in Color, Change in Hair/Nails, Dryness, Flushing, Lesions, Lumps, Pallor, Pruritus, Rash, Sweating *Physical Exam - Physical Exam 08/19/19 11:04 Gen: alert, NAD Skin: RUE: healing sunburn on upper arm and forearm, with small area of redness on upper arm, peeling skin on rest of upper arm and forearm. LUE: healing sunburn on forearm, with peeling skin but no redness. Healing sunburn on upper arm with a larger area of redness and a single, healing blister. No open skin. Medical Decision Making - Medical Decision Making 08/19/19 11:11 pt presents to the Ed with healing sunburn. Burn appears to have been mostly superficial with some areas of superficial partial thickness block, but is largely healed. Patient and her son are concerned about infection, but there is no open skin, so I have discussed with them that the risk of infection is low. Patient will return to the ED for worsening symptoms and use neosporin to help prevent infection. Given wound care follow up Discharge - Discharge Information Problems reviewed: Yes Clinical Impression/Diagnosis: Sunburn Condition: Good Disposition: HOME - Admission No - Additional Discharge Information Prescriptions: Diphenhydramine HCl [Benadryl -] 25 mg PO Q8H PRN #21 capsule PRN Reason: For Itching Ibuprofen 600 mg PO TID PRN #20 tablet PRN Reason: Pain Cephalexin [Keflex] 500 mg PO BID #20 capsule - Follow up/Referral Referrals: Dio Curtis MD [Non Staff, Medical] - - Patient Discharge Instructions Patient Printed Discharge Instructions: DI for Sunburn Additional Instructions: you came to the Ed for a severe sunburn which is mostly healed. It is normal to experience some itching as part of the healing process, but its very important not to scratch. Return to the ED for spreading redness or swelling, severely worsening pain, fever, nausea and vomiting, persistently elevated blood sugars--these are all signs that there is infection. use the neosporin cream to help prevent infection--fill the antibiotic prescription only if you start to experience the symptoms described above. If the symptoms have not mostly resolv ed within one week, follow up with Dr. Curtis in wound clinic. Call to make an appointment on Tuesday. - Post Discharge Activity
[2019-08-19 10:47] VITALS: BP 148/83; PULSE 74; TEMP 98.2; BMI 28.6
== END 2019-08-19 10:35 | disposition home or self-care (01) ==
LOC: FER 10:04
DX: L55.9 Sunburn, unspecified (principal)
CPT/HCPCS: 99282-25

== ENCOUNTER 2023-09-09 04:41 | Day surgery (SDC) | payer OTHER ==
[2023-09-08 15:27] VITALS: BMI 26.6
[2023-09-09] MEDS ORDERED: LIDOCAINE HCL/PF 1% SDV 5ML VIAL ONE (07:14)
[2023-09-09] MEDS: LIDOCAINE 1% P/F 10 MG/ML VIAL PNB ONE ×3 (08:33)
[2023-09-09 09:13] VITALS: RESP 18
[2023-09-09 10:11] VITALS: BP 119/70; PULSE 67; TEMP 98
== END 2023-09-09 10:00 | disposition home or self-care (01) ==
LOC: JASU-SURG 04:41
PROVIDERS: ATTEND Pain Medicine Pain Medicine
PROC: 01HY3MZ Insertion of Neurostimulator Lead into Peripheral Nerve, Percutaneous Approach (ICD-10-PCS; principal; 2023-09-09 08:00)
DX: G89.4 Chronic pain syndrome (principal)
CPT/HCPCS: 64555; C1778

== ENCOUNTER 2023-10-14 04:11 | Day surgery (SDC) | payer OTHER ==
[2023-10-13 09:28] VITALS: BMI 26.6
[2023-10-14] MEDS ORDERED: LIDOCAINE HCL/PF 1% SDV 5ML VIAL ONE (07:29)
[2023-10-14] MEDS: LIDOCAINE HCL 1% PRESERVATIVE FREE - 30ML VIAL IJ ONE ×3 (09:40)
[2023-10-14 11:25] VITALS: BP 127/77; PULSE 82; RESP 17; TEMP 97.8
[2023-10-14] MEDS ORDERED: ACETAMINOPHEN 500 MG TABLET (FP) PO PRN (13:28)
== END 2023-10-14 10:30 | disposition home or self-care (01) ==
LOC: JASU-SURG 04:11
PROVIDERS: ATTEND Pain Medicine Pain Medicine
PROC: 01HY3MZ Insertion of Neurostimulator Lead into Peripheral Nerve, Percutaneous Approach (ICD-10-PCS; principal; 2023-10-14 08:30)
DX: G89.4 Chronic pain syndrome (principal); M54.31 Sciatica, right side
CPT/HCPCS: 64555; C1778

== ENCOUNTER 2024-01-20 04:51 | Day surgery (SDC) | payer OTHER ==
[2024-01-19 17:07] VITALS: BMI 26.1
[2024-01-20] MEDS ORDERED: BUPIVACAINE HCL/PF 0.75% 10 ML VIAL ONE (07:25)
[2024-01-20] MEDS ORDERED: LIDOCAINE HCL/PF 1% SDV 5ML VIAL ONE (07:25)
[2024-01-20 10:54] VITALS: RESP 18
[2024-01-20 11:30] VITALS: BP 126/78; PULSE 71; TEMP 97.8
[2024-01-20] MEDS ORDERED: ACETAMINOPHEN 500 MG TABLET (FP) PO PRN (12:06)
== END 2024-01-20 11:30 | disposition home or self-care (01) ==
LOC: JASU-SURG 04:51
PROVIDERS: ATTEND Pain Medicine Pain Medicine
PROC: 3E0T33Z Introduction of Anti-inflammatory into Peripheral Nerves and Plexi, Percutaneous Approach (ICD-10-PCS; 2024-01-20)
PROC: 3E0T3BZ Introduction of Anesthetic Agent into Peripheral Nerves and Plexi, Percutaneous Approach (ICD-10-PCS; principal; 2024-01-20 10:37)
DX: M47.816 Spondylosis without myelopathy or radiculopathy, lumbar region (principal)
CPT/HCPCS: 76000-TC-FY; 82962

== ENCOUNTER 2024-04-12 07:22 | Day surgery (SDC) | payer OTHER ==
[2024-04-10 13:15] VITALS: BMI 25.8
[2024-04-12] MEDS ORDERED: ACETAMINOPHEN 500 MG TABLET (FP) PO PRN (08:39)
[2024-04-12 12:22] VITALS: RESP 18
[2024-04-12] MEDS: LIDOCAINE 1% P/F 10 MG/ML VIAL INF ONE (12:48)
[2024-04-12] MEDS: DEXAMETHASONE SOD PHOSPHATE 10 MG/1 ML VIAL IVPUSH ONE (12:49)
[2024-04-12] MEDS: IOHEXOL 180 MG/1 ML ML IJ ONE (12:50)
[2024-04-12 13:10] VITALS: BP 107/69; PULSE 75; TEMP 98
== END 2024-04-12 13:19 | disposition home or self-care (01) ==
LOC: JASU-SURG 07:22
PROVIDERS: ATTEND Pain Medicine Pain Medicine
PROC: 3E0R3BZ Introduction of Anesthetic Agent into Spinal Canal, Percutaneous Approach (ICD-10-PCS; 2024-04-12)
PROC: 3E0R33Z Introduction of Anti-inflammatory into Spinal Canal, Percutaneous Approach (ICD-10-PCS; principal; 2024-04-12 13:30)
DX: M54.16 Radiculopathy, lumbar region (principal)
CPT/HCPCS: 76000-TC-FY; J1100

== ENCOUNTER 2024-05-18 05:27 | Day surgery (SDC) | payer OTHER ==
[2024-05-16 15:38] VITALS: BMI 25.8
[2024-05-18] MEDS ORDERED: ACETAMINOPHEN 500 MG TABLET (FP) PO PRN (09:20)
[2024-05-18 15:26] VITALS: RESP 20; TEMP 97.3
[2024-05-18] MEDS: LIDOCAINE HCL 1% PRESERVATIVE FREE - 30ML VIAL IJ ONE ×2 (15:44)
[2024-05-18] MEDS: IOHEXOL 180 MG/1 ML ML IJ ONE ×2 (15:44)
[2024-05-18] MEDS: BUPIVACAINE HCL/PF 0.5% (5MG/ML) 10 ML VIAL IJ ONE ×2 (15:46)
[2024-05-18] MEDS: TRIAMCINOLONE ACET 40MG/1ML VIAL IJ ONE ×2 (15:46)
[2024-05-18 17:15] VITALS: BP 128/72; PULSE 70
== END 2024-05-18 16:12 | disposition home or self-care (01) ==
LOC: JASU-SURG 05:27
PROVIDERS: ATTEND Pain Medicine Pain Medicine
PROC: 3E0U3BZ Introduction of Anesthetic Agent into Joints, Percutaneous Approach (ICD-10-PCS; 2024-05-18)
PROC: 3E0U33Z Introduction of Anti-inflammatory into Joints, Percutaneous Approach (ICD-10-PCS; principal; 2024-05-18 15:45)
DX: M16.12 Unilateral primary osteoarthritis, left hip (principal)
CPT/HCPCS: 76000-TC-FY